=== PATIENT | female | born 2000 | race Caucasian/White ===

== ENCOUNTER 2023-04-17 15:49 | Emergency (ER) | payer SELFPAY | END 2023-04-17 17:11 | disposition home or self-care (01) | LOC: MW.ED 15:49 | DX: S09.90XA Unspecified injury of head, initial encounter (principal); W22.8XXA Striking against or struck by other objects, initial encounter; Y92.830 Public park as the place of occurrence of the external cause | CPT/HCPCS: 99283 ==

== ENCOUNTER 2023-06-01 12:20 | Emergency (ER) | payer SELFPAY ==
[2023-06-01] MEDS ORDERED: Dexamethasone 4 MG Tab PO STA (13:13)
== END 2023-06-01 14:47 | disposition home or self-care (01) ==
LOC: MW.ED 12:20
DX: J01.90 Acute sinusitis, unspecified (principal); H65.02 Acute serous otitis media, left ear; F17.210 Nicotine dependence, cigarettes, uncomplicated; Z20.822 Contact with and (suspected) exposure to COVID-19
CPT/HCPCS: 87635; 87651; 99284; J8540; U0002